=== PATIENT | male | born 1990 | race African-American/Black ===

== ENCOUNTER 2018-01-22 12:31 | Emergency (ER) | payer SELFPAY ==
--- NOTE | 2018-01-22 13:04 | RADIOLOGY REPORT (SQ) ---
EXAM DESCRIPTION: WRIST LEFT 3 VIEWS COMPLETED DATE/TIME: 01/22/2018 12:54 pm REASON FOR STUDY: fell on wrist COMPARISON: None. NUMBER OF VIEWS: Three views. TECHNIQUE: AP, lateral, and oblique radiographic images acquired of the left wrist. LIMITATIONS: None. FINDINGS: MINERALIZATION: Normal. BONES: No acute fracture or dislocation. No worrisome bone lesions. Normal alignment. SOFT TISSUES: No soft tissue swelling. No foreign body. OTHER: No other significant finding. IMPRESSION: NEGATIVE STUDY OF THE LEFT WRIST. NO RADIOGRAPHIC EVIDENCE OF ACUTE INJURY. TECHNICAL DOCUMENTATION: JOB ID: [id number] [employer]- All Rights Reserved Reading location - IP/workstation name: [email or web address]
--- NOTE | 2018-01-22 14:28 | ER Document Report ---
HPI - HPI Patient complains to provider of: Left wrist injury playing basketball Onset: Yesterday Onset/Duration: Gradual Pain Level: 4 Context: 27-year-old male injured left wrist while playing basketball yesterday, landed on left wrist. No previous injury or fracture. Associated Symptoms: None Exacerbated by: Denies Relieved by: Denies Similar symptoms previously: No Recently seen / treated by doctor: No - ROS ROS below otherwise negative: Yes Systems Reviewed and Negative: Yes All other systems reviewed and negative Past Medical History - General Information source: Patient - Social History Smoking Status: Never Smoker Frequency of alcohol use: None Drug Abuse: None Lives with: Family Family History: Reviewed & Not Pertinent - Medical History Medical History: Negative Surgical Hx: Negative Vertical Provider Document - CONSTITUTIONAL Agree With Documented VS: Yes Exam Limitations: No Limitations - INFECTION CONTROL TRAVEL OUTSIDE OF THE [place] IN LAST 30 DAYS: No - HEENT HEENT: Normocephalic - NECK Neck: Supple - MUSCULOSKELETAL/EXTREMETIES Musculoskeletal/Extremeties: MAEW, FROM, Tender - mild tender over the ulnar styloid, No Edema. negative: Eccymosis - NEURO Level of Consciousness: Awake Motor/Sensory: No Motor Deficit, No Sensory Deficit - DERM Integumentary: No Rash Course - Vital Signs Vital signs: Temp Pulse Resp BP Pulse Ox 98.5 F 55 L 17 119/76 99 01/22/18 14:03 01/22/18 14:03 01/22/18 14:03 01/22/18 14:03 01/22/18 14:03 Procedures - Immobilization Left Wrist Time completed: 15:25 Pre-Proc Neuro Vasc Exam: Normal Immobilizer type: Volar splint Performed by: PCT Post-Proc Neuro Vasc Exam: Normal Alignment checked and good: Yes Discharge - Discharge Clinical Impression: Left wrist sprain Condition: Good Disposition: HOME, SELF-CARE Instructions: Acetaminophen, Ibuprofen (General) ([facility]), Splint Precautions ([facility] ), Temporary Splint ([facility]) Additional Instructions: splint for comfort copy of negative xray tylelnol motrin see orthopedic doctor if pain persists Prescriptions: Ibuprofen [Motrin 800 mg Tablet] 800 mg PO Q8HP PRN #30 tablet PRN Reason: Forms: Return to School, Release from PE and Sports Referrals: TYLER WHITNEY DO [ACTIVE STAFF] - Follow up as needed
[2018-01-22] MEDS ORDERED: IBUPROFEN 800 MG TABLET PO ONE (14:50)
[2018-01-22 15:31] VITALS: BP 122/81
== END 2018-01-22 15:30 | disposition home or self-care (01) ==
LOC: ER 12:31
DX: S63.502A Unspecified sprain of left wrist, initial encounter (principal); X58.XXXA Exposure to other specified factors, initial encounter
CPT/HCPCS: 99283